=== PATIENT | male | born 1965 | race Caucasian/White ===

== ENCOUNTER 2022-09-27 02:58 | Emergency (ER) | payer OTHER, SELFPAY ==
--- NOTE | 2022-09-27 03:03 | ECG_ITS ---
Test Reason : OD Blood Pressure : / mmHG Vent. Rate : 067 BPM Atrial Rate : 067 BPM P-R Int : 190 ms QRS Dur : 098 ms QT Int : 430 ms P-R-T Axes : 054 060 142 degrees QTc Int : 454 ms Normal sinus rhythm Possible Left atrial enlargement T wave abnormality, consider lateral ischemia Abnormal ECG When compared with ECG of 24-JUL-2019 03:36, No significant change was found Referred By: Generic ED Physician Electronically Signed By:SERGIO GIANG MD
[2022-09-27 03:07] VITALS: BP 182/111; PULSE 64; O2SAT 98; BMI 28.3
--- NOTE | 2022-09-27 03:14 | ED.OVERDOSE ---
HPI - Overdose General Chief Complaint: Overdose Stated Complaint: UNRESP D/T OD/NARCAN BY FRIEND,CALM/COOP PER EMS Time Seen by Provider: 09/27/22 03:11 Source: patient Mode of arrival: EMS Limitations: no limitations History of Present Illness HPI Narrative: Patient comes to the emergency room for an accidental overdose. Patient states that he found a bag of what he thought was heroin, elected and accidentally overdose. Patient states that he has been very stressed lately. Patient's mother 2 days ago and has not been able to sleep for those 2 days. Patient complaining of feeling very nauseous, denies chest pain or shortness of breath. Patient denies suicidal or homicidal ideation. Patient was given Narcan by his friend. Related Data Allergies Allergy/AdvReac Type Severity Reaction Status Date / Time No Known Allergies Allergy Unverified 11/17/19 15:01 [No Known Allergies*] Review of Systems Review of Systems: Constitutional : No Weight loss, No Fever, No Chills, No Night Sweats, No Fatigue, No Malaise, feels somnolent ENT/Mouth : No Hearing loss, No Ear Pain, No Nasal Congestion, No Sinus Pain, No Hoarseness, No sore throat, No Rhinorrhea, No Swallowing Difficulty Eyes: No Eye Pain, No Swelling, No Redness, No Foreign Body, No Discharge, No Vision Changes Cardiovascular : No Chest Pain, No SOB, No Dyspnea on Exertion, No Orthopnea, No Edema, No Palpitations Respiratory : No Cough, No Sputum, No Wheezing, No Smoke Exposure, No Dyspnea Gastrointestinal : Complaining of Nausea, No Vomiting, No Diarrhea, No Constipation, No abdominal Pain, No Hematochezia, No Melena Genitourinary : no irregular bleeding, No Dysuria, No Urinary Frequency, No Hematuria, No Urinary Incontinence, No Urgency, No Flank Pain, No Urinary Flow Changes, No Hesitancy Musculoskeletal : No joint pain, No Myalgias, No Joint Swelling Skin : No Skin Lesions, No rash Neuro : No Weakness, No Numbness, No Paresthesias, No Loss of Consciousness, No Dizziness, No Headache Psych : No Anxiety/Panic, No Depression, No SI/HI/AH/VH, patient morning his mother's , admits to using/licking heroin Heme/Lymph: No Bruising, No Bleeding,No Lymphadenopathy Endocrine : No Polyuria, No Polydipsia, No Temperature Intolerance [facility] Past Medical History Medical History (Updated 09/27/22 @ 04:37 by Jyoti Funez MD) Substance abuse Social History Social History Smoked in Last 30 Days: No Use of substances other than those prescribed or required for medical reasons: Yes Substance Use Type: Heroin Substance Use Frequency: Socially Last Used Substance: Just Prior to Admission Any prior treatment program specific to substance use: No Physical Exam Vital Signs: Vital Signs: Last Vital Signs Temp 95.6 F L 09/27/22 03:18 Pulse 69 09/27/22 04:03 Resp 14 09/27/22 04:03 BP 149/93 H 09/27/22 04:03 Pulse Ox 95 09/27/22 04:03 O2 Del Method Room Air 09/27/22 04:03 BMI result Body Mass Index 28.3 Const: Other: Appearance: Alert. Oriented X3. No acute distress. Eyes: Pupils equal, round and reactive to light. ENT: Pharynx normal. Neck: Normal inspection. Neck supple. No lymph nodes noted. No crepitus CVS: Normal heart rate and rhythm. Pulses normal. Normal S1 and S2 Respiratory: No respiratory distress. Breath sounds normal. No Wheezing. No rales Abdomen: Soft and nontender. No rigidity. No distention. Skin: Skin warm and dry. Normal skin color. Normal skin turgor. Extremities: No lower extremity edema. No Lacerations. No Rash Neuro: Oriented X 3. No motor deficit. No sensory deficit. Moving all extremities. No slurred speech. CN 2 through 12 grossly intact Psych: calm, cooperative, normal affect, coherent Course Course Course Narrative: -all of patient's labs pending -denies SI or HI, Section 12 not indicated Medications Administered Discontinued Medications Generic Name Dose Route Start Last Admin Trade Name Freq PRN Reason Stop Dose Admin Meclizine HCl 50 mg 09/27/22 03:14 09/27/22 03:31 Meclizine Hcl 25 Mg Tablet PO 09/27/22 03:15 50 mg ONCE ONE Administration Ondansetron HCl 4 mg 09/27/22 03:14 09/27/22 03:31 Ondansetron Hcl 4 Mg/2 Ml Vial IVPUSH 09/27/22 03:15 4 mg ONCE ONE Administration Medical Decision Making Medical Decision Making MDM Narrative: -my interpretation of EKG: Normal sinus rhythm, heart rate 67, nonspecific T-wave inversion in V4 V5 V6, no ST segment depression, QTC 454, no previous EKG for comparison. Patient is asymptomatic -my interpretation of labs, troponin negative, hematology and chemistry unremarkable. -patient declined detox/career coach/sude eval -upon discharge, patient will be given home Narcan -plan: metabolized to freedom Differential Diagnosis Differential Diagnoses: The differential diagnosis associated with the presentation includes (Depression, polysubstance abuse, alcohol abuse) Admission/Observation Consideration of admission/observation: Escalation of care including admission/observation considered (Patient is under observation, metabolize to freedom) Lab Data 09/27/22 03:22 09/27/22 03:22 Labs: Lab Results 09/27/22 09/27/22 09/27/22 Range/Units 03:22 03:22 03:22 WBC 6.3 (4.8-10.8) X10*3/uL RBC 5.00 (4.60-5.80) X10*6/uL Hgb 14.6 (14.0-18.0) g/dl Hct 43.3 (42.0-52.0) % MCV 86.6 (80.0-98.0) fL MCH 29.2 (27.0-33.0) pg MCHC 33.7 (31.0-36.0) g/dl RDW 12.6 (11.0-16.0) % Plt Count 119 L (160-400) X10*3/uL MPV 9.7 (9.4-12.4) fL Immature Gran % (Auto) 0.2 (0.0-0.4) % Neut % (Auto) 59.2 (45-73) % Lymph % (Auto) 25.7 (20-40) % [place] % (Auto) 10.6 (2-11) % Eos % (Auto) 3.8 (0-4) % Baso % (Auto) 0.5 (0-2) % Lymph # (Auto) 1.6 (1.2-4.9) X10*3/uL [place] # (Auto) 0.7 (0.1-1.2) X10*3/uL Eos # (Auto) 0.2 (0.0-0.4) X10*3/uL Baso # (Auto) 0.0 (0.0-0.2) X10*3/uL Abs Immat Gran (auto) 0.01 (0.00-0.03) X10*3/uL Absolute Neuts (auto) 3.8 (2.0-8.3) x10*3/uL Absolute Nucleated RBC 0.000 (0.0-0.012) X10*3/uL Nucleated RBC % (auto) 0.0 (0.0-0.2) /100WBC Sodium 140 (135-145) mmol/L Potassium 3.4 (3.3-5.1) mmol/L Chloride 107 (96-108) mmol/L Carbon Dioxide 19 L (22-29) mmol/L Anion Gap 17 (12-20) BUN 18 H (9-16) mg/dL Creatinine 0.99 (0.5-1.4) mg/dL Estim Creat Clear Calc 96.0 Estimated GFR > 60 Random Glucose 149 H (60-115) mg/dL Calcium 8.9 (8.4-10.2) mg/dL Troponin I High Sens 12.9 (<3.5-35.0) ng/L Discharge Plan Discharge Clinical Impression: Drug overdose Patient Disposition: Still a Patient Instructions: Adult Overdose (ED) Additional Instructions: Please follow-up with your primary care physician tomorrow. If you have any worsening or new symptoms, please return to the emergency room or call 911
[2022-09-27 03:18] VITALS: BP 178/113; PULSE 87; RESP 27; TEMP 35.3; O2SAT 97
[2022-09-27 03:26] LABS: MANUAL DIFF FLAG NO
[2022-09-27 03:29] LABS: Basophils Percent Auto 0.5 % (0-2); Eosinophils Absolute Auto 0.2 X10*3/uL (0.0-0.4); Eosinophils Percent Auto 3.8 % (0-4); Hematocrit 43.3 % (42.0-52.0); Hemoglobin 14.6 g/dl (14.0-18.0); Imm Gran Abs Auto 0.01 X10*3/uL (0.00-0.03); Imm Gran Pct Auto 0.2 % (0.0-0.4); Lymphocytes Absolute Auto 1.6 X10*3/uL (1.2-4.9); Lymphocytes Percent Auto 25.7 % (20-40); Mean Corpuscular HGB Conc 33.7 g/dl (31.0-36.0); Mean Corpuscular Hemoglobin 29.2 pg (27.0-33.0); Mean Corpuscular Volume 86.6 fL (80.0-98.0); Mean Platelet Volume 9.7 fL (9.4-12.4); Monocytes Absolute Auto 0.7 X10*3/uL (0.1-1.2); Monocytes Percent Auto 10.6 % (2-11); Neutrophils Absolute Auto 3.8 x10*3/uL (2.0-8.3); Neutrophils Percent Auto 59.2 % (45-73); Platelet Count 119 X10*3/uL (160-400); Red Cell Distribution Width 12.6 % (11.0-16.0); White Blood Count 6.3 X10*3/uL (4.8-10.8)
[2022-09-27] MEDS: ondansetron HCL 4 MG/2 ML VIAL IVPUSH (03:31)
[2022-09-27] MEDS: Meclizine HCl 25 MG TABLET 50 MG PO (03:31)
[2022-09-27 03:45] LABS: Anion Gap 17 (12-20); Blood Urea Nitrogen 18 mg/dL (9-16); Calcium 8.9 mg/dL (8.4-10.2); Carbon Dioxide 19 mmol/L (22-29); Chloride 107 mmol/L (96-108); Estimated Glomerular Filt Rate > 60; Glucose Random 149 mg/dL (60-115); Potassium 3.4 mmol/L (3.3-5.1); Sodium 140 mmol/L (135-145)
[2022-09-27 03:51] LABS: Troponin-I High Sensitivity 12.9 ng/L (<3.5-35.0)
--- NOTE | 2022-09-27 04:00 | PC.NURSE ---
pt resting at this time, no sign of distress.
[2022-09-27 04:03] VITALS: BP 149/93; PULSE 69; RESP 14; O2SAT 95
--- OUTSIDE RECORDS SUMMARY | 2022-09-27 04:54 | XMS_ITS | Patient Health Record ---
Author Name Unknown Organization [facility] Address Placement of archive d users an [place], [place] [id number] Care Team Providers Care Armament Repairer Name Role Phone ChuckMaryanne Akira Unavailable Unavailable ZZPhimera, ZZClaudia Unavailable UnavailNgoc Whitman Unavailable [phone] PROBLEMS Type Condition ICD9-CM Code OML39-YO Code Onset Dates Condition Status W/U Status Risk SNOMED Code Notes Problem EXERCISE COUNSELING V65.41 confirmed 944107933 Problem DIETARY SURVEIL/COUNS EL V65.3 confirmed [id number] Problem Hypertension 401.9 confirmed [id number] Problem Hepatitis C without hepatic coma, not otherwise specified 070.70 confirmed [id number] Problem Obesity, BMI 30-39.9 278.00 confirmed [id number] Problem Cocaine abuse, in remission 305.63 confirmed [id number] Problem Depressive Disorder NOS 311 confirmed [id number] Problem Tobacco use disorder 305.1 confirmed [id number] ALLERGIES No Known Allergies ENCOUNTERS from 1965 to 2022-09-27 Encounter Location Date Provider Diagnosis [address] [id number] Jul, ZYimie ChuckZEwal Hypertension 401.9 ; Depressive Disorder NOS 311 ; Tobacco use disorder 305.1 ; Cocaine abuse, in remission 305.63 and Hepatitis C without hepatic coma, not otherwise specified 070.70 [facility] for [address] [id number] June, ZZClaudia ZAHEERPhigordonips Hypertension 401.9 ; Tobacco use disorder 305.1 ; Depressive Disorder NOS 311 ; Cocaine abuse, in remission 305.63 ; Obesity, BMI 30-39.9 278.00 ; DIETARY SURVEIL/CERTIFIED COURT INTERPRETER V65.3 and EXERCISE COUNSELING V65.41 [facility] for [address] [id number] June, Ngoc Pina SOCIAL HISTORY Tobacco Use: Social History Observation Description Date Details (start date - stop date) Current Smoker Sex Assigned At : Social History Observation Description Sex Assigned At Unknown Tobacco Use Assessment MU Question Answer Notes What is your current smoking status? current smo ker Patient counseled on the freddy rawlss of tobacco use and advised to quit: 08/03/2014 Are you interested in quitting? Thinking about q uitting How soon after you wake up d o you smoke your first cigarette? 6-30 min How many cigarettes a day do you smoke? 11-20 How often do you smoke? every day REASON FOR REFERRAL No Information VITAL SIGNS from 1963 to 2022-09-27 Height 72 in Jul, Weight 237 lbs June, BMI 32.14 kg/m2 June, Oximetry 98 Jul, Blood pressure systolic 118 Jul, Blood pressure diastolic 77 Jul, MEDICATIONS Medication SIG (Take, Route, Frequency, Duration) Notes Start Date End Date Status Nicorette 4 mg 1 ea chewed every 2 hours for 30 day(s) June, Active amLODIPine 5 mg 1 tab(s) orally once a day for 30 day(s) Active escitalopram 10 mg 1 tab(s) orally once a day for 30 day(s) Active hydrochlorothiazide-lisino pril 25 mg-20 mg 1 tab(s) orally once a day for 30 day(s) Active RESULTS from 1963 to 2022-09-27 Component Value Reference Range Notes Hep C viral load - [facility] Reviewed date:08/03/2014 10:29:49 Interpretation:8,467,120 Performing Lab:[facility], ,[place] [address] Notes/Report: FibroSURE -HepC - [facility] Reviewed date:08/03/2014 10:28:50 Interpretation:F2 0.48 Performing Lab:[facility], ,[place] [address] Notes/Report: Colonoscopy Reviewed date:08/03/2014 10:31:52 Interpretation:1 tubular adenoma repeat 5 yrs Performing Lab:[facility], ,[place] [address] Notes/Report: Hep C Genotype - [facility] Reviewed date:08/03/2014 10:30:49 Interpretation:1a Performing Lab:[facility], ,[place] [address] Notes/Report: REASON FOR VISIT No Information MEDICAL (GENERAL) HISTORY Type Description Date Medical History hypertension Medical History depression Medical History cocaine addiction in recovery () Medical History tobacco, ready to quit (06/2014) Medical History Hepatits C, treated in 2004, taras led, [facility] MENTAL STATUS No Information ASSESSMENTS Encounter Date Diagnosis Assessment Notes Treatment Notes Treatment Clinical Notes Jul, Hypertension (ICD9-CM - 401.9) Discussed risks of untreated HTN including stroke, NV, heart failure, renal failure and , adivsed pt to return for BP follow up and to be consistent in taking medications. Jul, Depressive Disorder NOS (ICD9-CM - 311) Pt not in tehrapy but thinking about it, not on wait list yet but has planned to call them and will walk over today supports offered Jul, Tobacco use disorder (ICD9-CM - 305.1) Smoking assessment today reveals that client is cutting down on cigarette use as a strategy to quit tobacco use. No NRT at this time per client request. Support offered in quit attempt. working to cut back but not comitted to quitting at yet Jul, Cocaine abuse, in remission (ICD9-CM - 305.63) Jul, Hepatitis C without hepatic coma, not otherwise specified (ICD9-CM - 070.70) followed by GI , Reviewed options for tx for Hep C. Current regimes typically take 12 weeks and have fewer side effects than previous regimes. Encouraged to consider treatment when ready to commit to rigorous regime that requires taking medication on a daily basis for several weeks without interuption. Failure to complete treatment precisely could decrease chances to achieve a sustained viral response and exempt from future retreatment with current regimes June, Hypertension (ICD9-CM - 401.9) last took BP meds on weekend. Hopefully resuming meds will lower BP to controlled level June, Tobacco use disorder (ICD9-CM - 305.1) counseled re cessation. Will try gum for quitting June, Depressive Disorder NOS (ICD9-CM - 311) [facility] has always prescribed lexapro for him, has not seen MH specialist June, Cocaine abuse, in remission (ICD9-CM - 305.63) supportive counseling re recovery June, Obesity, BMI 30-39.9 (ICD9-CM - 278.00) discussed best way to lose weight / diet and exercise / permanent lifestyle changes June, DIETARY SURVEIL/CERTIFIED COURT INTERPRETER (ICD9-CM - V65.3) June, EXERCISE COUNSELING (ICD9-CM - V65.41) June, Other return as curly causey, can enroll with [facility] if he desires PLAN OF TREATMENT Medication Medication Name Sig Start Date Stop Date amLODIPine 5 mg 1 tab(s) orally once a day for 30 day(s) escitalopram 10 mg 1 tab(s) orally once a day for 30 day(s) hydrochlorothiazide-lisinopr il 25 mg-20 mg 1 tab(s) orally once a day for 30 day(s) Treatment Notes Assessment Notes Clinical Notes Hypertension Discussed risks of u ntreated HTN including stroke, NV, heart failure, renal failure and , adivsed pt to return for BP follow up and to be consistent in taking medications. Hypertension last took BP meds on weekend. Hopefully resuming meds will lower BP to controlled level Depressive Disorder NOS Pt not in tehrap y but thinking about it, not on wait list yet but has planned to call them and will walk over today supports offered Tobacco use disorder counseled re cessat ion. Will try gum for quitting Tobacco use disorder Smoking assessment today reveals that client is cutting down on cigarette use as a strategy to quit tobacco use. No NRT at this time per client request. Support offered in quit attempt. working to cut back but not comitted to quitting at yet Depressive Disorder NOS [facility] has always p rescribed lexapro for him, has not seen MH specialist Cocaine abuse, in remission supportive c ounseling re recovery Hepatitis C without hepatic coma, not otherwise specified followed by GI , Reviewed options for tx for Hep C. Current regimes typically take 12 weeks and have fewer side effects than previous regimes. Encouraged to consider treatment when ready to commit to rigorous regime that requires taking medication on a daily basis for several weeks without interuption. Failure to complete treatment precisely could decrease chances to achieve a sustained viral response and exempt from future retreatment with current regimes Obesity, BMI 30-39.9 discussed best way to lose weight / diet and exercise / permanent lifestyle changes Next Appt Details prn Reason: Insurance Providers Payer Name Payer Address Payer Phone Insured Name Patient Relationship to Insured Coverage Start Date Coverage End Date Subscriber Number Group Number [facility] [employer] [address] [facility] [id number] Meli Omalley Self - patient is the insured 5 [id number]
[2022-09-27] MEDS: Naloxone HCl Nasal TAKE HOME 4 MG SPRAY 8 MG NOSTRILALT (05:58)
[2022-09-27 06:18] VITALS: BP 152/94; PULSE 67; RESP 12; TEMP 36.5; O2SAT 96
--- NOTE | 2022-09-27 06:43 | PC.NURSE ---
pt sleeping no sign of distress. Will continue to monitor.
[2022-09-27 07:13] VITALS: BP 144/89; PULSE 64; RESP 16; TEMP 36.5; O2SAT 98
[2022-09-27 09:07] LABS: Amphetamine Screen Urine Not Detected (Not Detect); Barbiturates, Urine Not Detected (Not Detect); Benzodiazepines Screen Urine Not Detected (Not Detect); Cannabinoid Screen Urine Not Detected (Not Detect); Cocaine Screen Urine POSITIVE (Not Detect); Fentanyl, urine POSITIVE (Not Detect); Opiate Screen Urine Not Detected (Not Detect); Phencyclidine Screen Urine Not Detected (Not Detect)
[2022-09-27 09:12] VITALS: BP 144/78; PULSE 68; RESP 18; O2SAT 98
== END 2022-09-27 09:14 | disposition home or self-care (01) ==
PROVIDERS: Emergency Provider Emergency Medicine
DX: T40.5X1A Poisoning by cocaine, accidental (unintentional), initial encounter (principal); T40.411A Poisoning by fentanyl or fentanyl analogs, accidental (unintentional), initial encounter; R40.4 Transient alteration of awareness; F19.10 Other psychoactive substance abuse, uncomplicated; R11.0 Nausea; Y92.9 Unspecified place or not applicable
CPT/HCPCS: 36415; 80048; 80307; 84484; 85025; 93005; 96374; 99285; J2405

== ENCOUNTER → 2022-09-27 03:03 | Outpatient (BNV) | payer OTHER, SELFPAY | PROVIDERS: Emergency Provider Emergency Medicine; Visit Provider Internal Medicine Cardiovascular Disease | DX: Z51.81 Encounter for therapeutic drug level monitoring (principal) | CPT/HCPCS: 93010 ==